=== PATIENT | male | born 2000 | race Caucasian/White ===

== ENCOUNTER 2023-05-21 18:25 | Emergency (ER) | payer OTHER ==
[~2023-05-21] VITALS: Ht 165.1 cm; Wt 80.0 kg
[2023-05-21 18:38] VITALS: O2SAT 98
[2023-05-21] MEDS: KETOROLAC 15MG/ML VIAL IM ONE (20:03)
[2023-05-21] MEDS ORDERED: NAPR-1176 MT (21:56)
[2023-05-21 22:04] VITALS: BP 118/68; PULSE 54; RESP 13; TEMP 98
[2023-05-21] MEDS ORDERED: DOXY100T2 MT (22:13)
[2023-05-21] MEDS: CEFTRIAXONE SODIUM 250MG VIAL IM ONE (22:41)
== END 2023-05-21 22:55 | disposition home or self-care (01) ==
LOC: ER 18:25
DX: N45.2 Orchitis (principal); N43.3 Hydrocele, unspecified
CPT/HCPCS: 99285; 93976; 76870; 96372; J0696; J1885